=== PATIENT | female | born 1960 | race Caucasian/White ===

== ENCOUNTER 2017-05-12 16:46 | Emergency (ER) | payer BC, OTHER ==
[2017-05-12 17:04] VITALS: BP 140/91
[2017-05-12] MEDS ORDERED: Lidocaine 1% 20 ML MDV INJECT ONE (17:21)
[2017-05-12] MEDS ORDERED: Bacitracin/Neomycin/Polymyxin B Oint 0.9 GM U/D Packet TOP ONE (17:43)
[2017-05-12] MEDS ORDERED: Take Home: Acetaminophen/HYDROcodone 325-5 MG, 2 Tab Pack PO ONE (17:58)
--- NOTE | 2017-05-12 18:00 | EDM.PDOC ---
ED HPI GENERAL MEDICAL PROBLEM - General Chief Complaint: Upper Extremity Injury/Pain Stated Complaint: POSSIBLE BROKEN FINGER Time Seen by Provider: 05/12/17 17:30 Source of Information: Reports: Patient History Limitations: Reports: No Limitations - History of Present Illness INITIAL COMMENTS - FREE TEXT/NARRATIVE: 1.5 cm laceration to the distal tip of the left little finger. This was crushed in a garage door that the wind blew shut. No other injuries noted. Onset: Today Location: Reports: Other (rght 5th digit.) Quality: Reports: Throbbing Severity: Moderate Worsens with: Reports: Movement Right 5-Little finger Pain Score (Numeric/FACES): 8 - Related Data Allergies Allergy/AdvReac Type Severity Reaction Status Date / Time codeine AdvReac Agitation Verified 05/12/17 16:55 Home Meds: Home Meds Dextroamphetamine/Amphetamine [Adderall] 30 mg PO DAILY 05/12/17 [History] Levothyroxine Sodium [Synthroid] 125 mcg PO DAILY 05/12/17 [History] Past Medical History HEENT History: Reports: Allergic Rhinitis, Impaired Vision Psychiatric History: Reports: ADHD, Depression Endocrine/Metabolic History: Reports: Hypothyroidism - Past Surgical History Female Surgical History: Reports: Tubal Ligation Musculoskeletal Surgical History: Reports: Other (See Below) Other Musculoskeletal Surgeries/Procedures:: leg surgery Social & Family History - Tobacco Use Smoking Status *Q: Never Smoker - Caffeine Use Caffeine Use: Reports: None - Recreational Drug Use Recreational Drug Use: No Review of Systems - Review of Systems Review Of Systems: See Below Musculoskeletal: Reports: Other (finger pain) Skin: Reports: Wound (right 5th finger) ED EXAM, GENERAL - Physical Exam Exam: See Below Exam Limited By: No Limitations General Appearance: Alert, Moderate Distress Respiratory/Chest: No Respiratory Distress, Lungs Clear Cardiovascular: Regular Rate, Rhythm, No Edema Extremities: No Pedal Edema, Other (right 5th digit is swollen with laceration noted. Good sensation noted to tip of finger. finger nail is torn off but laying on top of nail bed.) Neurological: Alert, Oriented Skin Exam: Warm, Dry, Wound/Incision (see above) ED TRAUMA EXTREMITY PROCEDURES - Laceration/Wound Repair Right Distal Finger Lac/Wound Length In cm: 1.5 Appearance: Subcutaneous, Irregular Distal NVT: Neuro & Vascular Intact, No Tendon Injury Anesthetic Type: Digital Local Anesthesia - Lidocaine (Xylocaine): 1% Plain Local Anesthetic Volume: 4cc Skin Prep: Other (safeclens) Closed With: Sutures Suture Size: other (5-0) # of Sutures: 4 Suture Type: Nylon, Interrupted Tetanus Status Addressed: Yes Complications: No Course - Vital Signs Last Recorded V/S: Last Vital Signs Temp 97.3 F 05/12/17 17:00 Pulse 95 05/12/17 17:00 Resp 16 05/12/17 17:00 BP 140/91 H 05/12/17 17:00 Pulse Ox 98 05/12/17 17:00 - Orders/Labs/Meds Orders: Active Orders 24 hr Category Date Time Status Fingers Fifth Digit Rt F9 [CR] Stat Exams 05/12/17 16:53 Taken Meds: Medications Discontinued Medications Generic Name Dose Route Start Last Admin Trade Name Freq PRN Reason Stop Dose Admin Hydrocodone Bitart/Acetaminophen 2 packet 05/12/17 17:58 Take Home: Acetaminophen/Hydrocod, 2 Tab Pack PO 05/12/17 17:59 ONETIME ONE Lidocaine HCl 20 ml 05/12/17 17:21 Xylocaine 1% INJECT 05/12/17 17:22 ONETIME ONE Neomycin/Polymyxin/Bacitracin 1 each 05/12/17 17:43 Triple Antibiotic Oint TOP 05/12/17 17:44 ONETIME ONE Departure - Departure Time of Disposition: 17:55 Disposition: Home, Self-Care 01 Condition: Good Clinical Impression: Laceration Open fracture of tuft of distal phalanx of finger Qualifiers: Encounter type: initial encounter Qualified Code(s): S62.639B - Displaced fracture of distal phalanx of unspecified finger, initial encounter for open fracture - Discharge Information Instructions: Sutured Wound Care, [id number] Referrals: PCP,None [Primary Care Provider] - Forms: ED Department Discharge Additional Instructions: keep finger dry and clean suture removal in about 10 days. Call for appt. [phone] change dressing with antibiotic ointment and dressing. Tylenol or advil for discomfort If above doesnt help then use norco 5/325 mg 1 tab every 6 hours as needed. Elevate for the next 1-3 days to help with the swelling. - Problem List & Annotations (1) Open fracture of tuft of distal phalanx of finger SNOMED Code(s): 342729783 Code(s): S62.639B - DISP FX OF DISTAL PHALANX OF UNSP FINGER, INIT FOR OPN FX Status: Acute Priority: High Current Visit: Yes Qualifiers: Encounter type: initial encounter Qualified Code(s): S62.639B - Displaced fracture of distal phalanx of unspecified finger, initial encounter for open fracture (2) Laceration SNOMED Code(s): 707938005 Code(s): QYG6690 - Status: Acute Priority: High Current Visit: Yes - Problem List Review Problem List Initiated/Reviewed/Updated: Yes - My Orders Last 24 Hours: My Active Orders 05/12/17 16:53 Fingers Fifth Digit Rt F9 [CR] Stat - Assessment/Plan Last 24 Hours: My Active Orders 05/12/17 16:53 Fingers Fifth Digit Rt F9 [CR] Stat
== END 2017-05-12 18:13 | disposition home or self-care (01) ==
LOC: CC.ED 16:46
DX: S62.636B Displaced fracture of distal phalanx of right little finger, initial encounter for open fracture (principal); E03.9 Hypothyroidism, unspecified; Z98.51 Tubal ligation status; Z98.890 Other specified postprocedural states; Y92.59 Other trade areas as the place of occurrence of the external cause; W23.0XXA Caught, crushed, jammed, or pinched between moving objects, initial encounter
CPT/HCPCS: 12001; 73140; 99283; A9270

== ENCOUNTER 2020-05-19 22:37 | Emergency (ER) | payer OTHER ==
--- NOTE | 2020-05-19 22:56 | EDM.PDOC ---
ED HPI GENERAL MEDICAL PROBLEM - General Chief Complaint: Abdominal Pain Stated Complaint: abdominal pain Time Seen by Provider: 05/19/20 22:45 Source of Information: Reports: Patient History Limitations: Reports: No Limitations - History of Present Illness INITIAL COMMENTS - FREE TEXT/NARRATIVE: Radha is a 59 yo female who presents to the ED with c/o lower abdominal pain. She reports this afternoon she noticed it kind of felt "funny" when she urinated. She reports then around 8 pm she had episode of sharp lower abdominal pain. Reports she had cold sweats during episode. Now pain has improved some but continues to have pain in RLQ. Reports she has been slightly nauseated. Has had a couple loose stools since this afternoon. No fever, malaise, CP, shortness of breath, vomiting, urinary frequency, urgency. Does report she still has her appendix. Last ate supper around 6:30 without issue. Onset: Today Onset Date: 05/19/20 Onset Time: 13:00 Duration: Getting Worse Location: Reports: Abdomen Associated Symptoms: Reports: Diaphoresis, Fever/Chills (chills, no fever), Loss of Appetite, Nausea/Vomiting (nausea, no vomiting). Denies: Confusion, Chest Pain, Cough, cough w sputum, Headaches, Malaise, Rash, Seizure, Shortness of Breath, Syncope, Weakness Right Lower Abdominal Pain Score (Numeric/FACES): 2 - Related Data Allergies Allergy/AdvReac Type Severity Reaction Status Date / Time codeine AdvReac Agitation Verified 05/19/20 22:46 Home Meds: Home Meds Dextroamphetamine/Amphetamine [Adderall] 30 mg PO DAILY 05/12/17 [History] Levothyroxine Sodium [Synthroid] 125 mcg PO DAILY 05/12/17 [History] Ketorolac [Toradol] 10 mg PO Q6H PRN #10 tab 05/19/20 [Rx] Nitrofurantoin Monohyd/M-Cryst [Macrobid 100 mg Capsule] 100 mg PO BID 6 Days #12 capsule 05/19/20 [Rx] Past Medical History HEENT History: Reports: Allergic Rhinitis, Impaired Vision Psychiatric History: Reports: ADHD, Depression Endocrine/Metabolic History: Reports: Hypothyroidism - Past Surgical History Female Surgical History: Reports: Tubal Ligation Musculoskeletal Surgical History: Reports: Other (See Below) Other Musculoskeletal Surgeries/Procedures:: leg surgery Social & Family History - Family History Family Medical History: Noncontributory - Caffeine Use Caffeine Use: Reports: None - Recreational Drug Use Recreational Drug Use: No ED ROS GENERAL - Review of Systems Review Of Systems: Comprehensive ROS is negative, except as noted in HPI. ED EXAM, GI/ABD - Physical Exam Exam: See Below Exam Limited By: No Limitations General Appearance: Alert, WD/WN, No Apparent Distress Throat/Mouth: Normal Inspection, Normal Lips, Normal Teeth, Normal Gums, Normal Oropharynx, Normal Voice, No Airway Compromise Head: Atraumatic, Normocephalic Neck: Normal Inspection, Supple, Non-Tender, Full Range of Motion Respiratory/Chest: No Respiratory Distress, Lungs Clear, Normal Breath Sounds, No Accessory Muscle Use, Chest Non-Tender Cardiovascular: Normal Peripheral Pulses, Regular Rate, Rhythm, No Edema, No Gallop, No JVD, No Murmur, No Rub GI/Abdominal Exam: Normal Bowel Sounds, Soft, Non-Tender, No Distention, Pelvis Stable. No: Guarding, Rigid, Rebound Extremities: Normal Inspection, Normal Range of Motion, Non-Tender, Normal Capillary Refill, No Pedal Edema Neurological: Alert, Oriented, CN II-XII Intact, Normal Cognition, Normal Gait, Normal Reflexes, No Motor/Sensory Deficits Psychiatric: Normal Affect, Normal Mood Skin Exam: Warm, Dry, Intact, Normal Color, No Rash Lymphatic: No Adenopathy Course - Vital Signs Last Recorded V/S: Last Vital Signs Temp 96.4 F L 05/19/20 22:55 Pulse 82 05/19/20 22:55 Resp 16 05/19/20 22:55 BP 102/41 L 05/19/20 22:55 Pulse Ox 99 05/19/20 22:55 - Orders/Labs/Meds Orders: Active Orders 24 hr Category Date Time Status CULTURE URINE [RM] Stat Lab 05/19/20 22:47 Results Labs: Laboratory Tests 05/19/20 05/19/20 05/19/20 Range/Units 22:47 22:47 22:47 WBC 11.5 H (5.0-10.0) 10^3/uL RBC 4.91 (4.00-5.50) 10^6/uL Hgb 14.9 (12.0-16.0) g/dL Hct 42.9 (37.0-47.0) % MCV 87.4 (82.0-94.0) fL MCH 30.3 (27.0-32.0) pg MCHC 34.7 (33.0-38.0) g/dL RDW Coeff of Toño 12.5 (11.0-15.0) % Plt Count 290 (150-400) 10^3/uL Neut % (Auto) 77.4 (35-85) % Lymph % (Auto) 15.9 (10-55) % [place] % (Auto) 6.1 (0-16) % Eos % (Auto) 0.3 (0-5) % Baso % (Auto) 0.3 (0-3) % Neut # (Auto) 8.91 H (1.80-7.00) 10^3/uL Lymph # (Auto) 1.83 (1.00-4.80) 10^3/uL [place] # (Auto) 0.70 (0.00-0.80) 10^3/uL Eos # (Auto) 0.03 (0.00-0.45) 10^3/uL Baso # (Auto) 0.04 10^3/uL Sodium 144 (136-145) mEq/L Potassium 3.8 (3.5-5.0) mEq/L Chloride 107 H (98-106) mEq/L Carbon Dioxide 30 (21-32) mmol/L BUN 14 (7-18) mg/dL Creatinine 1.1 H (0.6-1.0) mg/dL Est Cr Clr Drug Dosing TNP Estimated GFR (MDRD) 51 L (>=60) mL/min Glucose 121 H (75-99) mg/dL Calcium 8.8 (8.4-10.1) mg/dL Total Bilirubin 0.4 (0.0-1.0) mg/dL AST 13 L (15-37) U/L ALT 26 (12-78) U/L Alkaline Phosphatase 73 (46-116) U/L C-Reactive Protein < 0.2 L (0.2-0.8) mg/dL Total Protein 7.4 (6.4-8.2) g/dL Albumin 3.7 (3.4-5.0) g/dL Amylase 39 (25-115) U/L Lipase 112 (73-393) U/L Urine Color Yellow (YELLOW) Urine Appearance Clear (CLEAR) Urine pH 5.5 (4.5-8.0) Ur Specific [place] >= 1.030 H (1.003-1.020) Urine Protein 30 H (NEGATIVE) mg/dL Urine Glucose (UA) Negative (NEGATIVE) mg/dL Urine Ketones Negative (NEGATIVE) mg/dL Urine Occult Blood Large H (NEGATIVE) Urine Nitrite Positive H (NEGATIVE) Urine Bilirubin Negative (NEGATIVE) Urine Urobilinogen 0.2 (0.2-1.0) EU/dL Ur Leukocyte Esterase Negative (NEGATIVE) Urine RBC 75-100 H (0-5) /HPF Urine WBC Not seen (0-5) /HPF Amorphous Sediment Few H (NOT SEEN) /HPF Urine Bacteria Moderate H (NOT SEEN) /HPF Urinalysis Comment Meds: Medications Discontinued Medications Generic Name Dose Route Start Last Admin Trade Name Freq PRN Reason Stop Dose Admin Ketorolac Tromethamine 1 packet 05/19/20 23:20 Take Home: Ketorolac 10 Mg, 4 Tab Pack PO 05/19/20 23:21 ONETIME ONE Nitrofurantoin Macrocrystals 1 packet 05/19/20 23:20 Take Home: Nitrofur [place] 100 Mg, 2 Pack PO 05/19/20 23:21 ONETIME ONE Departure - Departure Time of Disposition: 23:16 Disposition: Home, Self-Care 01 Condition: Good Clinical Impression: UTI (urinary tract infection) Qualifiers: Urinary tract infection type: acute cystitis Hematuria presence: with hematuria Qualified Code(s): N30.01 - Acute cystitis with hematuria - Discharge Information *PRESCRIPTION DRUG MONITORING PROGRAM REVIEWED*: Not Applicable *COPY OF PRESCRIPTION DRUG MONITORING REPORT IN PATIENT CHAYA: Not Applicable Prescriptions: Nitrofurantoin Monohyd/M-Cryst [Macrobid 100 mg Capsule] 100 mg PO BID 6 Days #12 capsule Ketorolac [Toradol] 10 mg PO Q6H PRN #10 tab PRN Reason: Pain Instructions: Urinary Tract Infection, Adult, [id number] Referrals: PCP,None [Primary Care Provider] - Forms: ED Department Discharge Additional Instructions: - Macrobid twice daily x 7 days - Toradol 1 tablet every 6 hours as needed for pain - Rest and push fluids - Will follow up tomorrow pending urine culture results if we need to proceed with CT of abdomen/pelvis to be sure you to not have kidney stone - Return to ED for significant worsening of symptoms otherwise follow up in clinic as needed - Problem List & Annotations (1) UTI (urinary tract infection) SNOMED Code(s): 00865707 Code(s): N39.0 - URINARY TRACT INFECTION, SITE NOT SPECIFIED Status: Acute Qualifiers: Urinary tract infection type: acute cystitis Hematuria presence: with hematuria Qualified Code(s): N30.01 - Acute cystitis with hematuria - My Orders Last 24 Hours: My Active Orders 05/19/20 22:47 CULTURE URINE [RM] Stat - Assessment/Plan Last 24 Hours: My Active Orders 05/19/20 22:47 CULTURE URINE [RM] Stat Assessment:: UTI Plan: 59 yo female presents to ED with c/o urinary symptoms and right sided abdominal pain. UA shows > 100 RBCs and nitrate positive, but without pyuria. Labs otherwise stable. I do have concern for stone, but patient's pain resolved while in ED after urinating. Did discuss concern for stone vs. passing stone in ED. Will start patient on antibiotics and Toradol as needed for pain. She is advised to rest and push fluids. If pain worsens or culture is negative, will proceed with imaging to be done on outpatient basis, as WBC, creat and pain are controlled. Patient verbalized understanding and was comfortable with this plan. She was discharged from facility in satisfactory condition.
[2020-05-19 22:57] VITALS: BP 102/41; PULSE 82
[2020-05-19 23:11] LABS: CHLORIDE,CL 107 mEq/L (98-106); SODIUM,NA 144 mEq/L (136-145)
[2020-05-19] MEDS ORDERED: Take Home: Ketorolac 10 MG Tab, 4 Tab Pack PO ONE (23:20)
[2020-05-19] MEDS ORDERED: Take Home: Nitrofurantoin Monohydrate/Macrocrystalline 100 MG, 2 Cap Pack PO ONE (23:20)
== END 2020-05-19 23:30 | disposition home or self-care (01) ==
LOC: CC.ED 22:37
DX: N30.01 Acute cystitis with hematuria (principal); E03.9 Hypothyroidism, unspecified; Z88.5 Allergy status to narcotic agent; Z79.899 Other long term (current) drug therapy
CPT/HCPCS: 36415; 80053; 81001; 82150; 83690; 85025; 86140; 87086; 87088; 87186; 99284

== ENCOUNTER 2020-10-13 17:25 | Emergency (ER) | payer OTHER ==
[2020-10-13 17:31] VITALS: BP 148/94; PULSE 74
[2020-10-13 17:56] LABS: CHLORIDE,CL 104 mEq/L (98-106); SODIUM,NA 143 mEq/L (136-145)
[2020-10-13] MEDS: Sodium Chloride 0.9% 1,000 ML IV ONE (18:12)
[2020-10-13] MEDS: Ketorolac 30 MG/ML SDV IVPUSH ONE (18:12)
--- NOTE | 2020-10-13 19:16 | EDM.PDOC ---
ED HPI GENERAL MEDICAL PROBLEM - General Chief Complaint: Abdominal Pain Stated Complaint: "pretty sure I have a kidney stone again" Time Seen by Provider: 10/13/20 17:45 Source of Information: Reports: Patient History Limitations: Reports: No Limitations - History of Present Illness INITIAL COMMENTS - FREE TEXT/NARRATIVE: Radha is a 59 year old female who presents to the ED with c/o right groin pain. She reports earlier this afternoon she started to feel lousy. Reports pain has worsened since that time. She has now noticed that urine urine has been blood tinged. She denies any dysuria, fever, chills, vomiting, diarrhea. Does report she has had decreased appetite today and has been nauseated. Did have same issue back in May of this year. Onset: Today Duration: Getting Worse Location: Reports: Abdomen (RLQ) Quality: Reports: Sharp Severity: Severe Improves with: Reports: None Associated Symptoms: Reports: Loss of Appetite, Nausea/Vomiting (nausea, no vomiting). 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 Pain Score (Numeric/FACES): 9 - Related Data Allergies Allergy/AdvReac Type Severity Reaction Status Date / Time codeine AdvReac Agitation Verified 10/13/20 17:36 Home Meds: Home Meds Dextroamphetamine/Amphetamine [Adderall] 30 mg PO DAILY 05/12/17 [History] Levothyroxine Sodium [Synthroid] 125 mcg PO DAILY 05/12/17 [History] Ketorolac [Toradol] 10 mg PO Q6H PRN #10 tab 10/13/20 [Rx] Past Medical History HEENT History: Reports: Allergic Rhinitis, Impaired Vision Cardiovascular History: Reports: High Cholesterol Other Genitourinary History: Urinary frequency Psychiatric History: Reports: ADD, Depression Endocrine/Metabolic History: Reports: Hypothyroidism - Past Surgical History Female Surgical History: Reports: Tubal Ligation Musculoskeletal Surgical History: Reports: Other (See Below) Other Musculoskeletal Surgeries/Procedures:: leg surgery Social & Family History - Family History Family Medical History: No Pertinent Family History - Tobacco Use Tobacco Use Status *Q: Never Tobacco User - Caffeine Use Caffeine Use: Reports: None ED ROS GENERAL - Review of Systems Review Of Systems: Comprehensive ROS is negative, except as noted in HPI. ED EXAM, RENAL/ - Physical Exam Exam: See Below Exam Limited By: No Limitations General Appearance: Alert, WD/WN, Mild Distress Throat/Mouth: Normal Inspection, Normal Lips, Normal Teeth, Normal Gums, Normal Oropharynx, Normal Voice, No Airway Compromise Head: Atraumatic, Normocephalic Neck: Normal Inspection, Supple, Non-Tender, Full Range of Motion Respiratory/Chest: No Respiratory Distress, Lungs Clear, Normal Breath Sounds, No Accessory Muscle Use, Chest Non-Tender Cardiovascular: Normal Peripheral Pulses, Regular Rate, Rhythm, No Edema, No Gallop, No JVD, No Murmur, No Rub GI/Abdominal: Normal Bowel Sounds, Soft, Tender (RLQ) Back Exam: CVA Tenderness (R) Extremities: Normal Inspection, Normal Range of Motion, Non-Tender, Normal Capillary Refill, No Pedal Edema Neurological: Alert, Oriented, CN II-XII Intact, Normal Cognition, Normal Gait, Normal Reflexes, No Motor/Sensory Deficits Psychiatric: Normal Affect, Normal Mood Skin Exam: Warm, Dry, Intact, Normal Color, No Rash Course - Vital Signs Last Recorded V/S: Last Vital Signs Temp 97.3 F 10/13/20 17:26 Pulse 74 10/13/20 17:26 Resp 20 10/13/20 17:26 BP 148/94 H 10/13/20 17:26 Pulse Ox 98 10/13/20 17:26 - Orders/Labs/Meds Orders: Active Orders 24 hr Category Date Time Status Abdomen Pelvis wo Cont [CT] Stat Exams 10/13/20 18:07 Taken CULTURE URINE [RM] Stat Lab 10/13/20 18:12 Results Labs: Laboratory Tests 10/13/20 10/13/20 10/13/20 Range/Units 17:33 17:40 17:40 WBC 9.5 (5.0-10.0) 10^3/uL RBC 4.99 (4.00-5.50) 10^6/uL Hgb 14.7 (12.0-16.0) g/dL Hct 43.1 (37.0-47.0) % MCV 86.4 (82.0-94.0) fL MCH 29.5 (27.0-32.0) pg MCHC 34.1 (33.0-38.0) g/dL RDW Coeff of Toño 12.5 (11.0-15.0) % Plt Count 288 (150-400) 10^3/uL Neut % (Auto) 76.6 (35-85) % Lymph % (Auto) 18.1 (10-55) % [place] % (Auto) 4.8 (0-16) % Eos % (Auto) 0.2 (0-5) % Baso % (Auto) 0.3 (0-3) % Neut # (Auto) 7.25 H (1.80-7.00) 10^3/uL Lymph # (Auto) 1.71 (1.00-4.80) 10^3/uL [place] # (Auto) 0.45 (0.00-0.80) 10^3/uL Eos # (Auto) 0.02 (0.00-0.45) 10^3/uL Baso # (Auto) 0.03 10^3/uL Sodium 143 (136-145) mEq/L Potassium 3.6 (3.5-5.0) mEq/L Chloride 104 (98-106) mEq/L Carbon Dioxide 29 (21-32) mmol/L BUN 18 (7-18) mg/dL Creatinine 1.0 (0.6-1.0) mg/dL Est Cr Clr Drug Dosing 49.49 mL/min Estimated GFR (MDRD) 57 L (>=60) mL/min Glucose 137 H D (75-99) mg/dL Calcium 9.2 (8.4-10.1) mg/dL Total Bilirubin 0.5 (0.0-1.0) mg/dL AST 15 (15-37) U/L ALT 29 (12-78) U/L Alkaline Phosphatase 84 (46-116) U/L C-Reactive Protein < 0.2 L (0.2-0.8) mg/dL Total Protein 7.9 (6.4-8.2) g/dL Albumin 4.1 (3.4-5.0) g/dL Amylase 43 (25-115) U/L Lipase 121 (73-393) U/L Urine Color [place] (YELLOW) Urine Appearance Slightly cloudy (CLEAR) Urine pH 6.0 (4.5-8.0) Ur Specific [place] >= 1.030 H (1.003-1.020) Urine Protein 100 H (NEGATIVE) mg/dL Urine Glucose (UA) Negative (NEGATIVE) mg/dL Urine Ketones 40 H (NEGATIVE) mg/dL Urine Occult Blood Large H (NEGATIVE) Urine Nitrite Negative (NEGATIVE) Urine Bilirubin Negative (NEGATIVE) Urine Urobilinogen 0.2 (0.2-1.0) EU/dL Ur Leukocyte Esterase Negative (NEGATIVE) Urine RBC Packed H (0-5) /HPF Urine WBC 0-5 (0-5) /HPF Ur Epithelial Cells Occasional H (NOT SEEN) /HPF Urine Bacteria Few H (NOT SEEN) /HPF SARS CoV-2 RNA Rapid GREG[place] (NEGATIVE) 10/13/20 Range/Units 17:50 WBC (5.0-10.0) 10^3/uL RBC (4.00-5.50) 10^6/uL Hgb (12.0-16.0) g/dL Hct (37.0-47.0) % MCV (82.0-94.0) fL MCH (27.0-32.0) pg MCHC (33.0-38.0) g/dL RDW Coeff of Toño (11.0-15.0) % Plt Count (150-400) 10^3/uL Neut % (Auto) (35-85) % Lymph % (Auto) (10-55) % [place] % (Auto) (0-16) % Eos % (Auto) (0-5) % Baso % (Auto) (0-3) % Neut # (Auto) (1.80-7.00) 10^3/uL Lymph # (Auto) (1.00-4.80) 10^3/uL [place] # (Auto) (0.00-0.80) 10^3/uL Eos # (Auto) (0.00-0.45) 10^3/uL Baso # (Auto) 10^3/uL Sodium (136-145) mEq/L Potassium (3.5-5.0) mEq/L Chloride (98-106) mEq/L Carbon Dioxide (21-32) mmol/L BUN (7-18) mg/dL Creatinine (0.6-1.0) mg/dL Est Cr Clr Drug Dosing mL/min Estimated GFR (MDRD) (>=60) mL/min Glucose (75-99) mg/dL Calcium (8.4-10.1) mg/dL Total Bilirubin (0.0-1.0) mg/dL AST (15-37) U/L ALT (12-78) U/L Alkaline Phosphatase (46-116) U/L C-Reactive Protein (0.2-0.8) mg/dL Total Protein (6.4-8.2) g/dL Albumin (3.4-5.0) g/dL Amylase (25-115) U/L Lipase (73-393) U/L Urine Color (YELLOW) Urine Appearance (CLEAR) Urine pH (4.5-8.0) Ur Specific [place] (1.003-1.020) Urine Protein (NEGATIVE) mg/dL Urine Glucose (UA) (NEGATIVE) mg/dL Urine Ketones (NEGATIVE) mg/dL Urine Occult Blood (NEGATIVE) Urine Nitrite (NEGATIVE) Urine Bilirubin (NEGATIVE) Urine Urobilinogen (0.2-1.0) EU/dL Ur Leukocyte Esterase (NEGATIVE) Urine RBC (0-5) /HPF Urine WBC (0-5) /HPF Ur Epithelial Cells (NOT SEEN) /HPF Urine Bacteria (NOT SEEN) /HPF SARS CoV-2 RNA Rapid GREG[place] Negative (NEGATIVE) Meds: Medications Discontinued Medications Generic Name Dose Route Start Last Admin Trade Name Freq PRN Reason Stop Dose Admin Ceftriaxone Sodium 1 gm 10/13/20 19:10 10/13/20 19:36 Rocephin IVPUSH 10/13/20 19:11 1 gm ONETIME ONE Administration Fentanyl 25 mcg 10/13/20 19:21 10/13/20 19:27 Sublimaze IVPUSH 10/13/20 19:22 25 mcg ONETIME ONE Administration Sodium Chloride 1,000 mls @ 999 mls/hr 10/13/20 18:02 10/13/20 18:12 Normal Saline IV 10/13/20 19:02 999 mls/hr .BOLUS ONE Administration Ketorolac Tromethamine 30 mg 10/13/20 18:06 10/13/20 18:12 Toradol IVPUSH 10/13/20 18:07 30 mg ONETIME ONE Administration Ketorolac Tromethamine 1 packet 10/13/20 19:49 10/13/20 19:54 Take Home: Ketorolac 10 Mg, 4 Tab Pack PO 10/13/20 19:50 1 packet ONETIME ONE Administration Ketorolac Tromethamine 40 mg 10/13/20 19:35 Toradol .ROUTE 10/13/20 19:36 .[email or web address] - Radiology Interpretation Free Text/Narrative:: 4x7 mm stone at the right ureterovesical junction causing mild to moderate right hydroureteronephrosis. CT Results Date: 10/13/20 CT Results Time: 18:46 Departure - Departure Time of Disposition: 19:48 Disposition: Home, Self-Care 01 Condition: Good Clinical Impression: Right ureteral stone - Discharge Information *PRESCRIPTION DRUG MONITORING PROGRAM REVIEWED*: Not Applicable *COPY OF PRESCRIPTION DRUG MONITORING REPORT IN PATIENT CHAYA: Not Applicable Prescriptions: Ketorolac [Toradol] 10 mg PO Q6H PRN #10 tab PRN Reason: Pain Referrals: Felipa Canada PA-C [Primary Care Provider] - Forms: ED Department Discharge Additional Instructions: - Rest and push fluids - Toradol 1 tab every 6 hours as needed for pain - Strain urine to see if stone passes - Will notify of urine culture when results available - Follow up if symptoms worsen or do not improve Sepsis Event Note (ED) - Evaluation Sepsis Screening Result: No Definite Risk - Problem List & Annotations (1) Right ureteral stone SNOMED Code(s): 91968299 Code(s): N20.1 - CALCULUS OF URETER Status: Acute - My Orders Last 24 Hours: My Active Orders 10/13/20 18:07 Abdomen Pelvis wo Cont [CT] Stat 10/13/20 18:12 CULTURE URINE [RM] Stat - Assessment/Plan Last 24 Hours: My Active Orders 10/13/20 18:07 Abdomen Pelvis wo Cont [CT] Stat 10/13/20 18:12 CULTURE URINE [RM] Stat Assessment:: Right ureteral stone Plan: 59 year old female presents to the ED with c/o right lower abdominal pain. Has had kidney stone in the past and reports this feels similar. Labs were obtained revealing WBC 9.5, creatinine 1.0, and UA packed with RBCs. She was sent for CT abdomen/pelvis w/o contrast, which revealed 4 x 7mm stone at the right ureterovesical junction causing mild to moderate hydroureteronephrosis, as well as tiny nonobstructing stones in the right kidney. Patient was given 30 mg Toradol IV, which did improve pain initially. Pain worsened again and she was given 25 mcg fentanyl. She also received 1 L NS fluid bolus and 1 G Rocephin. At time of discharge patient had no ongoing pain. She will be discharged home with Toradol to be used 1 tablet every 6 hours as needed for pain. Urine culture is pending. She is advised to strain urine, although I did discuss that a 7 mm stone will likely be difficult to pass on own. We will arrange for outpatient urology referral with Dr. Farfan at [facility] [place]. Patient was discharged from facility in satisfactory condition. She is advised to follow up sooner if symptoms worsen.
[2020-10-13] MEDS: fentaNYL 100 MCG/2 ML SDV IVPUSH ONE (19:27)
[2020-10-13] MEDS ORDERED: Ketorolac 10 MG Tab ONE (19:35)
[2020-10-13] MEDS: cefTRIAXone 1 GM Vial IVPUSH ONE (19:36)
[2020-10-13] MEDS: Take Home: Ketorolac 10 MG Tab, 4 Tab Pack PO ONE (19:54)
== END 2020-10-13 20:05 | disposition home or self-care (01) ==
LOC: CC.ED 17:25
DX: N13.2 Hydronephrosis with renal and ureteral calculous obstruction (principal); F98.8 Other specified behavioral and emotional disorders with onset usually occurring in childhood and adolescence; E03.9 Hypothyroidism, unspecified; Z88.5 Allergy status to narcotic agent; Z79.899 Other long term (current) drug therapy
CPT/HCPCS: 36415; 74176; 80053; 81001; 82150; 83690; 85025; 86140; 87086; 87635; 96374; 96375; 99284; A9270; J0696; J1885; J3010; J7030; U0002

== ENCOUNTER 2024-03-30 11:09 | Day surgery (SDC) | payer OTHER ==
[2024-03-30] MEDS: Lactated Ringers 1,000 ML IV SCH (11:29)
[2024-03-30] MEDS ORDERED: fentaNYL 50 MCG/ML SDV ONE (11:47)
[2024-03-30] MEDS ORDERED: Ketamine 200 MG/20 ML MDV ONE (11:47)
[2024-03-30] MEDS ORDERED: Propofol 200 MG/20 ML SDV ONE ×2 (11:47)
[2024-03-30 13:25] VITALS: BP 127/70; PULSE 71
== END 2024-03-30 13:20 | disposition home or self-care (01) ==
LOC: CC.SDS 11:09
PROVIDERS: ATTEND Family Medicine
DX: Z12.11 Encounter for screening for malignant neoplasm of colon (principal); D12.4 Benign neoplasm of descending colon; D12.7 Benign neoplasm of rectosigmoid junction; K57.30 Diverticulosis of large intestine without perforation or abscess without bleeding; E78.00 Pure hypercholesterolemia, unspecified; E03.9 Hypothyroidism, unspecified; F41.9 Anxiety disorder, unspecified; Z79.890 Hormone replacement therapy; Z79.899 Other long term (current) drug therapy; Z88.5 Allergy status to narcotic agent; Z91.040 Latex allergy status
CPT/HCPCS: 00811; J2704; J3010; J3490; J7120